=== PATIENT | male | born 2000 | race Caucasian/White ===

== ENCOUNTER 2022-03-09 14:08 | Emergency (ER) | payer OTHER ==
[~2022-03-09] VITALS: Ht 167.6 cm; Wt 72.7 kg
[2022-03-09 14:49] VITALS: BP 152/55
== END 2022-03-09 19:05 | disposition left against medical advice (07) ==
LOC: EMS 14:08
DX: Z53.21 Procedure and treatment not carried out due to patient leaving prior to being seen by health care provider (principal)